=== PATIENT | female | born 1955 | race Caucasian/White ===

== ENCOUNTER → 2018-03-25 | Outpatient (CLI) | payer BC | LOC: MC.RAD 13:12 | DX: Z12.31 Encounter for screening mammogram for malignant neoplasm of breast (principal) ==

== ENCOUNTER 2024-01-11 05:56 | Day surgery (SDC) | payer MEDICARE, BC ==
[~2024-01-11] VITALS: Ht 160 cm; Wt 70.5 kg
[~2024-01-11 05:56] MED LIST: Ondansetron 4 MG/2 ML VIAL IV PRN
[2024-01-11] MEDS ORDERED: PRESERVISION1 SGL PO (06:36)
[2024-01-11] MEDS ORDERED: CALCIUM ANTAC1000 M2 PO (06:37)
[2024-01-11] MEDS ORDERED: VITAMIN D31000 IU PO (06:37)
[2024-01-11] MEDS ORDERED: PHARMASSURE CHE30 MG PO (06:38)
[2024-01-11] MEDS ORDERED: LR 1,000 ML IV SCH (07:00)
[2024-01-11] MEDS ORDERED: Lidocaine PF 2% (20 MG/ML) 5 ML VIAL ONE (07:24)
[2024-01-11 08:15] VITALS: BP 111/70; PULSE 72
[2024-01-11 08:29] VITALS: BP 125/80; PULSE 86; TEMP 97.9
[2024-01-11 08:30] VITALS: BP 108/61; PULSE 68
--- NOTE | 2024-01-11 08:35 | NUR ---
0813 Returns to room 2 per cart. Awake, alert, resp unlabored, ambulates to recliner with standby assist. Denies nause or abd pain. Vital signs obtained. Call light in reach. Spouse present in room. 0820 Tolerates PO water and crackers without nausea. Discharge instructions reviewed. Pt verbalizes understanding. Copy provided in discharge folder. [id number] Dr Clements here to visit with patient
== END 2024-01-11 08:35 | disposition home or self-care (01) ==
LOC: SDCO 05:56
DX: Z12.11 Encounter for screening for malignant neoplasm of colon (principal); K63.5 Polyp of colon
CPT/HCPCS: J2405; J2704; J7120